=== PATIENT | male | born 1960 | race Caucasian/White ===

== ENCOUNTER 2017-02-10 20:43 | Inpatient (IN) | payer MEDICARE, MEDICAID ==
[~2017-02-10] VITALS: Ht 188 cm; Wt 92.7 kg
[~2017-02-10 20:43] MED LIST: AMLO10TA4 PO; ASPI-986 PO; ATOR20TA PO; B50 PO; COR25 PO; FURO-151 PO; ISOS40TA17 PO; NITR0.4T49 SL; NITR1PAT65 TD; POTA20TA82 PO; RENEXA PO
[2017-02-10] MEDS ORDERED: ASPIRIN 81MG TABLET PO STA (21:25)
[2017-02-10] MEDS ORDERED: NITROGLYCERIN OINT 1GM/INCH UDPKT TD STA (21:25)
[2017-02-10] MEDS ORDERED: ONDANSETRON HCL 4MG/2ML VIAL IV STA (21:25)
[2017-02-10] MEDS ORDERED: MORPHINE SULFATE 4 MG/ML CPJ (NOT FOR IM USE) IV STA (21:25)
[2017-02-10 21:55] LABS: INR 1.1; PARTIAL THROMBOPLASTIN TIME 29.8 sec (24.0-34.0); PROTHROMBIN TIME 11.4 sec
[2017-02-10 21:58] LABS: CARBON DIOXIDE 29 mEq/L (21-32); CHLORIDE 100 mEq/L (98-107)
[2017-02-10 22:00] LABS: BASOPHILS % 0.5 % (0.0-2.0); EOSINOPHILS % 1.5 % (0.0-5.0); HEMATOCRIT. 34.4 % (42.0-52.0); HEMOGLOBIN. 11.3 g/dL (14.0-18.0); LYMPHOCYTES % 10.5 % (20.0-50.0); MEAN CORPUSCULAR HEMOGLOBIN 26.5 pg (28.0-32.0); MEAN PLATELET VOLUME 7.1 fl (7.4-10.4); MONOCYTES % 9.5 % (2.0-8.0); PLATELET 161 x1000/uL (130-400); RED BLOOD CELL COUNT 4.24 mill/uL (4.7-6.1); RED CELL DISTRIBUTION WIDTH 24.6 % (11.6-14.6)
[2017-02-10 22:04] LABS: TROPONIN I 0.02 ng/mL (0.00-0.04)
[2017-02-10 22:18] LABS: PLATELET ESTIMATE NORMAL
[2017-02-10] MEDS: NITROGLYCERIN 0.4MG TABLET SL SL PRN ×3 (22:31→23:19)
[2017-02-10] MEDS ORDERED: ACETAMINOPHEN 325MG TABLET PO PRN (23:00)
[2017-02-10] MEDS ORDERED: LORAZEPAM 2MG/ML CPJ IV PRN (23:00)
[2017-02-10] MEDS ORDERED: FUROSEMIDE 20MG/2ML VIAL IVP ONE (23:00)
[2017-02-10] MEDS ORDERED: HYDROCODONE/APAP 7.5/325MG 1 TAB TABLET PO PRN (23:00)
[2017-02-10] MEDS ORDERED: DOCUSATE SODIUM 100MG CAPSULE PO PRN (23:00)
[2017-02-10] MEDS ORDERED: CLONIDINE 0.1MG TABLET PO PRN (23:00)
[2017-02-10] MEDS ORDERED: DIPHENHYDRAMINE 50MG/ML VIAL IV PRN (23:00)
[2017-02-10] MEDS ORDERED: NA PHOS,M-B/NA PHOS,DI-BA ENEMA 118ML PR PRN (23:00)
[2017-02-10] MEDS ORDERED: GUAIFENESIN 200MG/10ML SUGAR FREE UDC PO PRN (23:00)
[2017-02-10] MEDS ORDERED: MAGNESIUM/ALUMINUM HYDROXIDE/SIMETHICONE 30ML UDC PO PRN (23:00)
[2017-02-11 00:21] LABS: CHLORIDE 101 mEq/L (98-107)
[2017-02-11 00:27] LABS: CARBON DIOXIDE 30 mEq/L (21-32)
[2017-02-11] MEDS: HYDROMORPHONE HCL/PF 2MG/ML CPJ IV PRN ×4 (01:16→23:03)
[2017-02-11] MEDS ORDERED: ASPIRIN 81MG EC TABLET PO SCH (09:00)
[2017-02-11] MEDS: ENOXAPARIN 40MG/0.4ML SYR SUBCUT SCH (09:00)
[2017-02-11] MEDS ORDERED: HYDR2TAB4 IV (09:57)
[2017-02-11 11:59] LABS: BASOPHILS % 0.4 % (0.0-2.0); EOSINOPHILS % 1.2 % (0.0-5.0); HEMATOCRIT. 33.6 % (42.0-52.0); HEMOGLOBIN. 10.9 g/dL (14.0-18.0); LYMPHOCYTES % 15.7 % (20.0-50.0); MEAN CORPUSCULAR HEMOGLOBIN 26.6 pg (28.0-32.0); MEAN CORPUSCULAR VOLUME 81.9 fL (80.0-94.0); NEUTROPHILS % 68.7 % (40.0-76.0); PLATELET 125 x1000/uL (130-400); RED BLOOD CELL COUNT 4.11 mill/uL (4.7-6.1); RED CELL DISTRIBUTION WIDTH 24.9 % (11.6-14.6)
[2017-02-11 12:23] LABS: CARBON DIOXIDE 30 mEq/L (21-32); CHLORIDE 104 mEq/L (98-107); HDL CHOLESTEROL 45 mg/dL (40-59); LDL CHOLESTEROL 68 mg/dL (5-100); TROPONIN I 0.02 ng/mL (0.00-0.04)
[2017-02-11] MEDS ORDERED: REGADENOSON 0.4 MG/5 ML IV ONE (14:00)
[2017-02-11 15:50] LABS: T4 FREE 0.95 ng/dL (0.76-1.46)
[2017-02-11 18:06] LABS: CREATINE KINASE 229 IU/L (39-308); CREATINE KINASE MB FRACTION 4.6 ng/mL (0.5-3.6); TROPONIN I < 0.02 ng/mL (0.00-0.04)
[2017-02-11] MEDS ORDERED: NITROGLYCERIN 0.4MG TABLET SL SL PRN (19:15)
[2017-02-11] MEDS ORDERED: DIPHENHYDRAMINE 50MG CAPSULE PO PRN (19:15)
[2017-02-12 01:53] LABS: CREATINE KINASE 190 IU/L (39-308); CREATINE KINASE MB FRACTION 4.5 ng/mL (0.5-3.6); TROPONIN I < 0.02 ng/mL (0.00-0.04)
[2017-02-12] MEDS: HYDROMORPHONE HCL/PF 2MG/ML CPJ IV PRN ×5 (02:58→18:10)
[2017-02-12] MEDS: AMLODIPINE 10MG TABLET PO SCH ×2 (08:11→20:32)
[2017-02-12] MEDS: CARVEDILOL 25MG TABLET PO SCH ×2 (08:11→20:31)
[2017-02-12] MEDS ORDERED: POTASSIUM CHLORIDE 20MEQ TABLET SR PO SCH (09:00)
[2017-02-12] MEDS ORDERED: ASPIRIN 325MG TABLET PO SCH (09:00)
[2017-02-12] MEDS ORDERED: ASPIRIN 81MG TABLET PO SCH (09:00)
[2017-02-12] MEDS: FUROSEMIDE 40MG TABLET PO SCH ×2 (09:25→18:10)
[2017-02-12] MEDS: ENOXAPARIN 40MG/0.4ML SYR SUBCUT SCH (09:39)
[2017-02-12 09:55] LABS: CREATINE KINASE 160 IU/L (39-308); TROPONIN I < 0.02 ng/mL (0.00-0.04)
[2017-02-12] MEDS ORDERED: REGADENOSON 0.4 MG/5 ML IV ONE (11:03)
[2017-02-12 20:00] VITALS: BP 110/67
[2017-02-12] MEDS ORDERED: ATORVASTATIN CALCIUM 20MG TABLET PO SCH (21:00)
== END 2017-02-12 21:13 | disposition home or self-care (01) | DRG 391 ==
LOC: ER 20:43 → 7WST 22:10 → EDBEDREQTM 22:16 → EDBEDREQ 22:16 → ENRESERV 02-11 02:36 → CANRESERV 02-11 02:36 → CANBEDREQ 02-11 03:35
PROVIDERS: ADMIT Internal Medicine; ATTEND Internal Medicine
DX: K21.9 Gastro-esophageal reflux disease without esophagitis (principal); I50.43 Acute on chronic combined systolic (congestive) and diastolic (congestive) heart failure; I42.9 Cardiomyopathy, unspecified; I11.0 Hypertensive heart disease with heart failure; Z95.1 Presence of aortocoronary bypass graft; I10 Essential (primary) hypertension; I25.119 Atherosclerotic heart disease of native coronary artery with unspecified angina pectoris; E66.9 Obesity, unspecified; E78.00 Pure hypercholesterolemia, unspecified; E78.5 Hyperlipidemia, unspecified; I25.2 Old myocardial infarction; Z79.82 Long term (current) use of aspirin; Z79.899 Other long term (current) drug therapy; Z88.8 Allergy status to other drugs, medicaments and biological substances; Z68.26 Body mass index [BMI] 26.0-26.9, adult; Z95.0 Presence of cardiac pacemaker
CPT/HCPCS: 36415; 71010; 78452; 80048; 80053; 80061; 82550; 82553; 83036; 83690; 83880; 84439; 84443; 84484; 85025; 85379; 85610; 85730; 93005; 93017; 93306; 93970; 96374; 96375; 96376; 99291; A9500; J1170; J1650; J1940; J2270; J2405; J2785

== ENCOUNTER 2018-10-23 21:49 | Inpatient (IN) | payer MEDICARE, MEDICAID ==
[~2018-10-23] VITALS: Ht 190.5 cm; Wt 94.0 kg
[~2018-10-23 21:49] MED LIST changes: +HYDR2TAB4 IV
[2018-10-23] MEDS ORDERED: ONDANSETRON HCL 4MG/2ML INJ IV ONE (23:15)
[2018-10-23] MEDS ORDERED: ASPIRIN 81MG TABLET PO ONE (23:15)
[2018-10-23] MEDS ORDERED: MORPHINE SULFATE 4 MG/ML CPJ (NOT FOR IM USE) IV ONE (23:15)
[2018-10-23] MEDS: NITROGLYCERIN 0.4MG TABLET SL SL PRN ×2 (23:50→23:55)
[2018-10-24] MEDS: NITROGLYCERIN 0.4MG TABLET SL SL PRN (00:01)
[2018-10-24 00:24] LABS: BASOPHILS % 0.4 % (0.0-2.0); EOSINOPHILS % 0.3 % (0.0-5.0); HEMATOCRIT. 35.1 % (42.0-52.0); MEAN CORPUSCULAR HEMOGLOBIN 30.3 pg (28.0-32.0); MEAN PLATELET VOLUME 7.1 fl (7.4-10.4); MONOCYTES % 12.5 % (2.0-8.0); NEUTROPHILS % 72.8 % (40.0-76.0); PLATELET 121 x1000/uL (130-400); RED BLOOD CELL COUNT 3.95 mill/uL (4.7-6.1); RED CELL DISTRIBUTION WIDTH 17.7 % (11.6-14.6)
[2018-10-24 00:34] LABS: CHLORIDE 104 mEq/L (98-107); INR 1.1; PARTIAL THROMBOPLASTIN TIME 29.8 sec (23.4-31.0); PROTHROMBIN TIME 11.2 sec (9.1-11.1)
[2018-10-24] MEDS ORDERED: MORPHINE SULFATE 4 MG/ML CPJ (NOT FOR IM USE) IV ONE (02:45)
[2018-10-24] MEDS ORDERED: CLONIDINE 0.1MG TABLET PO PRN (06:30)
[2018-10-24] MEDS ORDERED: MAGNESIUM/ALUMINUM HYDROXIDE/SIMETHICONE 30ML UDC PO PRN (06:30)
[2018-10-24] MEDS ORDERED: GUAIFENESIN 200MG/10ML SUGAR FREE UDC PO PRN (06:30)
[2018-10-24] MEDS ORDERED: ONDANSETRON HCL 4MG/2ML INJ IV PRN (06:30)
[2018-10-24] MEDS ORDERED: DOCUSATE SODIUM 100MG CAPSULE PO PRN (06:30)
[2018-10-24] MEDS ORDERED: ACETAMINOPHEN 325MG TABLET PO PRN (06:30)
[2018-10-24] MEDS: HYDROMORPHONE HCL/PF 2MG/ML CPJ IV PRN ×4 (07:09→23:56)
[2018-10-24] MEDS ORDERED: ASPIRIN 325MG EC TABLET PO SCH (09:00)
[2018-10-24 10:00] VITALS: BP 120/66
[2018-10-24] MEDS ORDERED: ASPIRIN 81MG TABLET PO SCH (13:00)
[2018-10-24] MEDS: FUROSEMIDE 40MG TABLET PO SCH ×2 (13:12→17:46)
[2018-10-24] MEDS: CARVEDILOL 25MG TABLET PO SCH ×2 (13:17→20:46)
[2018-10-24] MEDS: ENOXAPARIN 40MG/0.4ML SYR SUBCUT SCH (13:17)
[2018-10-24] MEDS: ISOSORBIDE MONONITRATE 60MG TABLET SR 24HR PO SCH (13:24)
[2018-10-24] MEDS ORDERED: POTASSIUM CHLORIDE 20MEQ TABLET SR PO NR (14:15)
[2018-10-24 16:57] VITALS: BP 84/48
[2018-10-24 18:27] LABS: CREATINE KINASE MB FRACTION 6.4 ng/mL (0.5-3.6)
[2018-10-24 18:36] LABS: T4 FREE 1.1 ng/dL (0.76-1.46)
[2018-10-24 20:00] VITALS: BP 100/53
[2018-10-25] VITALS (8 sets, daily range): BP systolic 93–119; BP diastolic 38–70
[2018-10-25] MEDS: HYDROMORPHONE HCL/PF 2MG/ML CPJ IV PRN ×5 (04:11→22:57)
[2018-10-25] MEDS: FUROSEMIDE 40MG TABLET PO SCH ×2 (06:33→18:41)
[2018-10-25 07:17] LABS: BASOPHILS % 0.4 % (0.0-2.0); EOSINOPHILS % 1.5 % (0.0-5.0); HEMATOCRIT. 37.2 % (42.0-52.0); HEMOGLOBIN. 12.3 g/dL (14.0-18.0); LYMPHOCYTES % 13.4 % (20.0-50.0); MEAN CORPUSCULAR HEMOGLOBIN 30.2 pg (28.0-32.0); MEAN CORPUSCULAR VOLUME 91.4 fL (80.0-94.0); MEAN PLATELET VOLUME 7.5 fl (7.4-10.4); MONOCYTES % 11.3 % (2.0-8.0); NEUTROPHILS % 73.4 % (40.0-76.0); PLATELET 127 x1000/uL (130-400); RED BLOOD CELL COUNT 4.07 mill/uL (4.7-6.1); RED CELL DISTRIBUTION WIDTH 18.3 % (11.6-14.6)
[2018-10-25 07:27] LABS: CHLORIDE 104 mEq/L (98-107)
[2018-10-25 07:53] LABS: CREATINE KINASE 313 IU/L (39-308)
[2018-10-25 07:54] LABS: LDL CHOLESTEROL 114 mg/dL (5-100)
[2018-10-25 07:55] LABS: HDL CHOLESTEROL 49 mg/dL (40-59)
[2018-10-25 07:59] LABS: CREATINE KINASE MB FRACTION 8.5 ng/mL (0.5-3.6)
[2018-10-25] MEDS ORDERED: REGADENOSON 0.4 MG/5 ML IV NR (08:15)
[2018-10-25] MEDS: CARVEDILOL 25MG TABLET PO SCH ×2 (09:24→21:00)
[2018-10-25] MEDS: ASPIRIN 325MG EC TABLET PO SCH (09:24)
[2018-10-25] MEDS: ISOSORBIDE MONONITRATE 60MG TABLET SR 24HR PO SCH (09:24)
[2018-10-25] MEDS ORDERED: REGADENOSON 0.4 MG/5 ML IV ONE (10:05)
[2018-10-25] MEDS: ENOXAPARIN 40MG/0.4ML SYR SUBCUT SCH (18:32)
[2018-10-26] VITALS: BP 114/45
[2018-10-26 04:00] VITALS: BP 126/65
[2018-10-26] MEDS: HYDROMORPHONE HCL/PF 2MG/ML CPJ IV PRN ×2 (04:14→08:50)
[2018-10-26] MEDS: FUROSEMIDE 40MG TABLET PO SCH ×2 (06:32→16:28)
[2018-10-26 08:34] VITALS: BP 100/53
[2018-10-26] MEDS: CARVEDILOL 25MG TABLET PO SCH (09:00)
[2018-10-26] MEDS: ISOSORBIDE MONONITRATE 60MG TABLET SR 24HR PO SCH (09:00)
[2018-10-26] MEDS: ASPIRIN 325MG EC TABLET PO SCH (09:57)
[2018-10-26] MEDS: ENOXAPARIN 40MG/0.4ML SYR SUBCUT SCH (13:00)
[2018-10-26 15:27] VITALS: BP 100/53
== END 2018-10-26 18:05 | disposition home or self-care (01) | DRG 303 ==
LOC: ER 21:49 → 6WST 10-24 01:27 → SUPCPDRO 10-24 06:27 → ENRESERV 10-24 07:54
PROVIDERS: ADMIT Hospitalist; ATTEND Hospitalist
DX: I25.119 Atherosclerotic heart disease of native coronary artery with unspecified angina pectoris (principal); I42.9 Cardiomyopathy, unspecified; E66.9 Obesity, unspecified; I45.6 Pre-excitation syndrome; E78.5 Hyperlipidemia, unspecified; I10 Essential (primary) hypertension; Z95.1 Presence of aortocoronary bypass graft; I25.2 Old myocardial infarction; Z95.810 Presence of automatic (implantable) cardiac defibrillator; Z88.8 Allergy status to other drugs, medicaments and biological substances; Z79.899 Other long term (current) drug therapy; Z79.82 Long term (current) use of aspirin; Z68.25 Body mass index [BMI] 25.0-25.9, adult
CPT/HCPCS: 36415; 71045; 78452; 80061; 82550; 82553; 83036; 83880; 84439; 84443; 84484; 85379; 93005; 93017; 93306; 93970; 96374; 96375; 99285; A9500; J1170; J1650; J2270; J2405; J2785; J7050

== ENCOUNTER 2019-03-06 16:59 | Inpatient (IN) | payer MEDICARE, MEDICAID ==
[~2019-03-06] VITALS: Ht 190.5 cm; Wt 100.7 kg
[2019-03-06 17:57] LABS: HEMOGLOBIN. 10.6 g/dL (14.0-18.0); MEAN CORPUSCULAR HEMOGLOBIN 28.4 pg (28.0-32.0); MEAN CORPUSCULAR VOLUME 86.1 fL (80.0-94.0); MEAN PLATELET VOLUME 7.2 fl (7.4-10.4); PLATELET 129 x1000/uL (130-400); RED BLOOD CELL COUNT 3.72 mill/uL (4.7-6.1); RED CELL DISTRIBUTION WIDTH 18.7 % (11.6-14.6)
[2019-03-06 18:00] LABS: CHLORIDE 99 mEq/L (98-107)
[2019-03-06] MEDS ORDERED: NITROGLYCERIN 0.4MG TABLET SL SL ONE (19:00)
[2019-03-06 19:04] LABS: PLATELET ESTIMATE DECREASED
[2019-03-06] MEDS ORDERED: LORAZEPAM 0.5MG TABLET PO PRN (20:30)
[2019-03-06] MEDS ORDERED: DOCUSATE SODIUM 100MG CAPSULE PO PRN (20:30)
[2019-03-06] MEDS ORDERED: TRAMADOL 50MG TABLET PO PRN (20:30)
[2019-03-06] MEDS ORDERED: ONDANSETRON HCL 4MG/2ML INJ IV PRN (20:30)
[2019-03-06] MEDS ORDERED: GUAIFENESIN 200MG/10ML SUGAR FREE UDC PO PRN (20:30)
[2019-03-06] MEDS ORDERED: DIPHENHYDRAMINE 50MG/ML VIAL IV PRN (20:30)
[2019-03-06] MEDS ORDERED: MAGNESIUM/ALUMINUM HYDROXIDE/SIMETHICONE 30ML UDC PO PRN (20:30)
[2019-03-06] MEDS ORDERED: IPRATROPIUM/ALBUTEROL 0.5-3(2.5)MG/3ML NEB INH PRN (20:30)
[2019-03-06] MEDS ORDERED: CLONIDINE 0.1MG TABLET PO PRN (20:30)
[2019-03-06] MEDS ORDERED: ZOLPIDEM TARTRATE 5MG TABLET PO PRN (21:00)
[2019-03-06 22:09] LABS: ETHANOL BLOOD < 10 mg/dL
[2019-03-06 22:11] LABS: TOTAL IRON BINDING CAPACITY 377 ug/dL (250-450)
[2019-03-06 22:12] LABS: LDL CHOLESTEROL 67 mg/dL (5-100)
[2019-03-06 22:13] LABS: HDL CHOLESTEROL 41 mg/dL (40-59)
[2019-03-06 22:27] LABS: FOLIC ACID (FOLATE) SERUM 5.3 ng/mL (>5.38)
[2019-03-06] MEDS: SPIRONOLACTONE 25MG TABLET PO SCH (23:02)
[2019-03-06] MEDS: FUROSEMIDE 40MG/4ML VIAL IVP SCH (23:02)
[2019-03-06] MEDS: ATORVASTATIN CALCIUM 20MG TABLET PO SCH (23:03)
[2019-03-06] MEDS: LISINOPRIL 20MG TABLET PO SCH (23:03)
[2019-03-06] MEDS: FAMOTIDINE 20MG TABLET PO SCH (23:03)
[2019-03-06] MEDS: CARVEDILOL 3.125 MG TABLET PO SCH (23:04)
[2019-03-06] MEDS: KETOROLAC 15MG/ML VIAL IV PRN (23:05)
[2019-03-06] MEDS: ENOXAPARIN 40MG/0.4ML SYR SUBCUT SCH (23:06)
[2019-03-06 23:20] VITALS: BP 130/68
[2019-03-07 00:15] LABS: CREATINE KINASE MB FRACTION 2.7 ng/mL (0.5-3.6)
[2019-03-07 00:50] VITALS: BP 130/68
[2019-03-07 04:00] VITALS: BP 108/59
[2019-03-07] MEDS: CARVEDILOL 3.125 MG TABLET PO SCH ×3 (05:45→18:00)
[2019-03-07 08:00] VITALS: BP 93/48
[2019-03-07] MEDS: LISINOPRIL 20MG TABLET PO SCH ×2 (09:00→21:00)
[2019-03-07] MEDS: SPIRONOLACTONE 25MG TABLET PO SCH ×2 (09:00→21:00)
[2019-03-07] MEDS: FUROSEMIDE 40MG/4ML VIAL IVP SCH ×2 (09:00→21:22)
[2019-03-07] MEDS: ISOSORBIDE MONONITRATE 30MG TABLET SR 24HR PO SCH (09:00)
[2019-03-07] MEDS: ASPIRIN 325MG EC TABLET PO SCH (09:05)
[2019-03-07] MEDS: FAMOTIDINE 20MG TABLET PO SCH ×2 (09:06→21:23)
[2019-03-07 12:00] VITALS: BP 76/42
[2019-03-07 13:29] LABS: *BENZODIAZEPINES SCREEN URINE NEGATIVE (NEGATIVE); *COCAINE SCREEN URINE NEGATIVE (NEGATIVE); METHADONE URINE SCREEN NEGATIVE (NEGATIVE); OPIATES URINE SCREEN NEGATIVE (NEGATIVE)
[2019-03-07 13:30] LABS: *AMPHETAMINES SCREEN URINE NEGATIVE (NEGATIVE); *BARBITURATES SCREEN URINE NEGATIVE (NEGATIVE); CANNABINOID URINE SCREEN NEGATIVE (NEGATIVE); PHENCYCLIDINE URINE SCREEN NEGATIVE (NEGATIVE)
[2019-03-07 16:00] VITALS: BP 101/55
[2019-03-07] MEDS: MORPHINE SULFATE 2 MG/ML CPJ (NOT FOR IM USE) IV PRN ×2 (16:41→21:34)
[2019-03-07 18:26] LABS: CREATINE KINASE 212 IU/L (39-308)
[2019-03-07 18:27] LABS: CREATINE KINASE MB FRACTION 2.2 ng/mL (0.5-3.6)
[2019-03-07 20:00] VITALS: BP 120/52
[2019-03-07] MEDS: ENOXAPARIN 40MG/0.4ML SYR SUBCUT SCH (21:22)
[2019-03-07] MEDS: ATORVASTATIN CALCIUM 20MG TABLET PO SCH (21:23)
[2019-03-07] MEDS: ACETAMINOPHEN 325MG TABLET PO PRN (21:58)
[2019-03-08] VITALS: BP 119/49
[2019-03-08] MEDS: MORPHINE SULFATE 2 MG/ML CPJ (NOT FOR IM USE) IV PRN ×2 (01:57→08:35)
[2019-03-08 04:00] VITALS: BP 96/45
[2019-03-08] MEDS: CARVEDILOL 3.125 MG TABLET PO SCH ×2 (05:07→18:00)
[2019-03-08 08:00] VITALS: BP 125/75
[2019-03-08] MEDS: FUROSEMIDE 40MG/4ML VIAL IVP SCH ×2 (08:34→20:53)
[2019-03-08] MEDS: FAMOTIDINE 20MG TABLET PO SCH ×2 (08:52→20:53)
[2019-03-08] MEDS: ISOSORBIDE MONONITRATE 30MG TABLET SR 24HR PO SCH (08:52)
[2019-03-08] MEDS: SPIRONOLACTONE 25MG TABLET PO SCH ×2 (08:52→20:53)
[2019-03-08] MEDS: ASPIRIN 325MG EC TABLET PO SCH (08:52)
[2019-03-08] MEDS: LISINOPRIL 20MG TABLET PO SCH ×2 (08:53→20:53)
[2019-03-08 09:22] LABS: HEMATOCRIT. 31.6 % (42.0-52.0); HEMOGLOBIN. 10.4 g/dL (14.0-18.0); MEAN CORPUSCULAR HEMOGLOBIN 28.4 pg (28.0-32.0); MEAN CORPUSCULAR VOLUME 86.6 fL (80.0-94.0); MEAN PLATELET VOLUME 7.8 fl (7.4-10.4); PLATELET 107 x1000/uL (130-400); RED BLOOD CELL COUNT 3.66 mill/uL (4.7-6.1); RED CELL DISTRIBUTION WIDTH 18.2 % (11.6-14.6)
[2019-03-08 09:34] LABS: CHLORIDE 104 mEq/L (98-107)
[2019-03-08 09:43] LABS: LDL CHOLESTEROL 55 mg/dL (5-100)
[2019-03-08 09:44] LABS: CREATINE KINASE 146 IU/L (39-308); CREATINE KINASE MB FRACTION 1.5 ng/mL (0.5-3.6); HDL CHOLESTEROL 36 mg/dL (40-59)
[2019-03-08] MEDS: ACETAMINOPHEN 325MG TABLET PO PRN (11:58)
[2019-03-08 12:54] LABS: PLATELET ESTIMATE SLIGHTLY DECREASED
[2019-03-08 16:00] VITALS: BP 102/45
[2019-03-08 20:00] VITALS: BP 105/59
[2019-03-08 20:17] LABS: CLARITY URINE CLEAR (CLEAR); COLOR URINE YELLOW (YELLOW); KETONES URINE NEGATIVE (NEGATIVE); LEUKOCYTE ESTERASE URINE NEGATIVE (NEGATIVE); NITRITE URINE NEGATIVE (NEGATIVE); OCCULT BLOOD URINE 2+ (NEGATIVE); PH URINE 7.5 (4.5-8.0); PROTEIN URINE NEGATIVE (NEGATIVE); SPECIFIC GRAVITY URINE 1.007 (1.005-1.030)
[2019-03-08] MEDS: ATORVASTATIN CALCIUM 20MG TABLET PO SCH (20:53)
[2019-03-08] MEDS: ENOXAPARIN 40MG/0.4ML SYR SUBCUT SCH (20:54)
[2019-03-08] MEDS: KETOROLAC 15MG/ML VIAL IV PRN (21:00)
[2019-03-09] VITALS: BP 91/54
[2019-03-09 04:00] VITALS: BP 101/59
[2019-03-09] MEDS: CARVEDILOL 3.125 MG TABLET PO SCH ×2 (05:30→17:07)
[2019-03-09 08:00] VITALS: BP 99/57
[2019-03-09] MEDS: LISINOPRIL 20MG TABLET PO SCH ×2 (08:42→21:04)
[2019-03-09] MEDS: ISOSORBIDE MONONITRATE 30MG TABLET SR 24HR PO SCH (08:42)
[2019-03-09] MEDS: FUROSEMIDE 40MG/4ML VIAL IVP SCH ×2 (08:42→21:00)
[2019-03-09] MEDS: FAMOTIDINE 20MG TABLET PO SCH ×2 (08:49→21:04)
[2019-03-09] MEDS: ASPIRIN 325MG EC TABLET PO SCH (08:49)
[2019-03-09] MEDS: SPIRONOLACTONE 25MG TABLET PO SCH ×2 (08:49→21:04)
[2019-03-09 12:00] VITALS: BP 108/64
[2019-03-09] MEDS: KETOROLAC 15MG/ML VIAL IV PRN (12:49)
[2019-03-09 16:00] VITALS: BP 102/52
[2019-03-09 20:00] VITALS: BP 110/58
[2019-03-09] MEDS: ENOXAPARIN 40MG/0.4ML SYR SUBCUT SCH (21:03)
[2019-03-09] MEDS: ATORVASTATIN CALCIUM 20MG TABLET PO SCH (21:04)
[2019-03-10] VITALS: BP 119/60
[2019-03-10] MEDS: ACETAMINOPHEN 325MG TABLET PO PRN (02:32)
[2019-03-10] MEDS: KETOROLAC 15MG/ML VIAL IV PRN (03:36)
[2019-03-10 04:00] VITALS: BP 104/61
[2019-03-10] MEDS: CARVEDILOL 3.125 MG TABLET PO SCH (05:29)
[2019-03-10] MEDS: ISOSORBIDE MONONITRATE 30MG TABLET SR 24HR PO SCH (08:15)
[2019-03-10] MEDS: LISINOPRIL 20MG TABLET PO SCH (08:16)
[2019-03-10] MEDS: SPIRONOLACTONE 25MG TABLET PO SCH (09:00)
[2019-03-10] MEDS: FUROSEMIDE 40MG/4ML VIAL IVP SCH (09:00)
[2019-03-10] MEDS: FAMOTIDINE 20MG TABLET PO SCH (09:58)
[2019-03-10] MEDS: ASPIRIN 325MG EC TABLET PO SCH (09:58)
[2019-03-10] MEDS ORDERED: FOLIC ACID 1MG TABLET PO SCH (10:00)
[2019-03-10] MEDS ORDERED: FOLIC ACID 1 MG in SODIUM CHLORIDE 0.9% 500 ML IV SCH (11:00)
[2019-03-10 11:20] VITALS: BP 98/45
[2019-03-10 14:50] VITALS: BP 98/45
[2019-03-10] MEDS ORDERED: RANO10003 MT (15:17)
[2019-03-10 16:33] VITALS: BP 101/55
[2019-03-11] MEDS ORDERED: FOLIC ACID 1MG TABLET PO SCH (09:00)
== END 2019-03-10 19:05 | disposition home or self-care (01) | DRG 292 ==
LOC: ER 16:59 → 6WST 20:10 → EDBEDREQTM 20:14 → EDBEDREQ 20:14 → SUPCPDRO 20:17 → ENRESERV 20:43 → 6WST 23:00
PROVIDERS: ADMIT Internal Medicine; ATTEND Internal Medicine
DX: I11.0 Hypertensive heart disease with heart failure (principal); E87.1 Hypo-osmolality and hyponatremia; I50.43 Acute on chronic combined systolic (congestive) and diastolic (congestive) heart failure; R07.89 Other chest pain; D63.8 Anemia in other chronic diseases classified elsewhere; E78.00 Pure hypercholesterolemia, unspecified; E78.5 Hyperlipidemia, unspecified; I45.6 Pre-excitation syndrome; E83.51 Hypocalcemia; I25.10 Atherosclerotic heart disease of native coronary artery without angina pectoris; Z79.899 Other long term (current) drug therapy; Z95.1 Presence of aortocoronary bypass graft; I25.2 Old myocardial infarction; Z76.5 Malingerer [conscious simulation]; Z95.810 Presence of automatic (implantable) cardiac defibrillator; Z88.8 Allergy status to other drugs, medicaments and biological substances; Z79.82 Long term (current) use of aspirin
CPT/HCPCS: 36415; 71045; 80061; 80305; 80320; 82550; 82553; 82607; 82746; 83036; 83540; 83550; 83735; 83880; 84443; 84484; 85379; 93005; 93306; 96374; 99285; C1893; J1650; J1885; J1940; J2270; J3490; J7040; G0480